=== PATIENT | female | born 1995 | race Caucasian/White ===

== ENCOUNTER 2019-04-21 12:01 | Emergency (ER) | payer BC ==
[~2019-04-21] VITALS: Ht 170.2 cm; Wt 81.6 kg
[2019-04-21 12:43] VITALS: BP 103/84
[2019-04-21 13:02] LABS: BASOPHILS % (AUTO) 0.8 % (0.0-2.0); EOSINOPHILS % (AUTO) 0.2 % (0.0-3.0); HEMOGLOBIN 17.6 G/DL (12.0-16.0); LYMPHOCYTES % (AUTO) 17.3 % (20.0-45.0); MEAN CORPUSCULAR VOLUME 96 FL (80-99); MONOCYTES % (AUTO) 6.4 % (1.0-10.0); NEUTROPHILS % (AUTO) 75.3 % (45.0-75.0); PLATELET COUNT 353 K/UL (150-450); RED BLOOD COUNT 5.44 M/UL (4.20-5.40); RED CELL DISTRIBUTION WIDTH 12.6 % (11.6-14.8); WHITE BLOOD COUNT 13.5 K/UL (4.8-10.8)
[2019-04-21 13:11] LABS: ANION GAP 25 mmol/L (5-15); BLOOD UREA NITROGEN 7 mg/dL (7-18); CARBON DIOXIDE 14 MMOL/L (21-32); CHLORIDE 99 MMOL/L (98-107); CREATININE 0.8 MG/DL (0.55-1.30); POTASSIUM 3.8 MMOL/L (3.5-5.1); SODIUM 138 MMOL/L (136-145)
[2019-04-21 13:18] LABS: ALANINE AMINOTRANSFERASE 132 U/L (12-78); ALBUMIN 4.5 G/DL (3.4-5.0); ALKALINE PHOSPHATASE 167 U/L (46-116); ASPARTATE AMINO TRANSFERASE 121 U/L (15-37); BILIRUBIN,TOTAL 0.8 MG/DL (0.2-1.0)
--- NOTE | 2019-04-21 15:00 | NUR ---
ED Nurse Note:pt. came with ETOH and tahycardia, A/Ox4 ambulatory, blood and urine sent to labs, given IV fluids
[2019-04-21 15:13] VITALS: BP 101/45
[2019-04-21 16:18] LABS: APPEARANCE,URINE CLOUDY; BILIRUBIN, URINE NEGATIVE (NEGATIVE); COLOR,URINE AMBER; GLUCOSE, URINE (UA) NEGATIVE (NEGATIVE); KETONES,URINE 4+ (NEGATIVE); LEUKOCYTE ESTERASE ,URINE NEGATIVE (NEGATIVE); NITRITE,URINE NEGATIVE (NEGATIVE); PH,URINE 5 (4.5-8.0); PROTEIN,URINE 4+ (NEGATIVE); UROBILINOGEN,URINE NORMAL MG/DL (0.0-1.0)
--- NOTE | 2019-04-21 16:43 | Emergency Room Report ---
History of Present Illness General Chief Complaint: Alcohol Intoxication Source: Patient Present Illness HPI 23-year-old female with history of alcohol abuse here due to alcohol intoxication. Reports that she drank a lot of alcohol last night and now has elevated heart rate and feels shaky. Denies any other drug use. Reports that she has been a drinker for a long time. Reports that she is interested in getting help. Is speaking in full sentences, in no apparent distress. Reports being on control. Denies chest pain, shortness of breath, palpitation, and dizziness. Denies any fever and chills no recent travel. Reports that she moved to [place] from [place] about 2 months ago. Denies . Allergies: Coded Allergies: SULFAMETHOXAZOLE (Verified Allergy, Unknown, 04/21/19) TRIMETHOPRIM (Verified Allergy, Unknown, 04/21/19) Patient History Past Medical History: see triage record Past Surgical History: unable to obtain Family History: unable to obtain Social History: ETOH Now: No Immunizations: UTD Reviewed Nursing Documentation: PMH: Agreed; PSxH: Agreed Nursing Documentation-PMH Past Medical History: No Stated History Review of Systems All Other Systems: negative except mentioned in HPI Physical Exam Vital Signs Date Time Temp Pulse Resp B/P (MAP) Pulse Ox O2 Delivery O2 Flow Rate FiO2 04/21/19 12:22 98.2 141 18 125/82 (96) 96 Room Air Sp02 EP Interpretation: reviewed, abnormal - Elevated heart rate General Appearance: alert/responsive, no apparent distress, GCS 15 Head: atraumatic Eyes: PERRL, lids + conjunctiva normal ENT: hearing intact, no angioedema Neck: supple/symm/no masses, no meningismus Respiratory: effort normal, no wheezing, chest symmetrical Cardiovascular: regular rate, rhythm, no edema Gastrointestinal: non-tender, no mass Musculoskeletal: normal inspection, gait & station normal Neurologic: oriented x3, sensory intact, normal speech Psychiatric: no suicidal/homicidal ideation, anxious Skin: no rash, well hydrated Lymphatic: normal inspection Medical Decision Making PA Attestation All my diagnosis and treatment plans were reviewed ad discussed with my supervising physician Dr. Lawrence Diagnostic Impression: Primary Impression: Acute alcoholic intoxication ER Course 23-year-old female with history of alcohol abuse here due to alcohol intoxication. Reports that she drank a lot of alcohol last night and now has elevated heart rate and feels shaky. Denies any other drug use. Reports that she has been a drinker for a long time. Reports that she is interested in getting help. Is speaking in full sentences, in no apparent distress. Reports being on control. Denies chest pain, shortness of breath, palpitation, and dizziness. Denies any fever and chills no recent travel. Reports that she moved to [place] from [place] about 2 months ago. Denies . Ddx considered but are not limited to: Alcohol intoxication with altered level of consciousness, alcohol intoxication causing pancreatitis, alcohol abuse, multi drug use and alcohol intoxication Vital signs: are WNL, pt. is afebrile H&PE are most consistent with: alcohol intoxication ORDERS: CBC, CMP, UA, tox screen, urine test, Zofran, omeprazole ER intervention: NS bolus 3 L, Zofran, Pepcid DISCHARGE: At this time pt. is stable for d/c to home. Will provide printed patient care instructions, and any necessary prescriptions. Care plan and follow up instructions have been discussed with the patient prior to discharge. I gave patient a list of detox centers sober living, avoid drinking alcohol, worsening symptoms.emergency room EKG Diagnostic Results Rate: tachycardiac Rhythm: other - tachy ST Segments: no acute changes Other Impression No acute ST changes Last Vital Signs Date Time Temp Pulse Resp B/P (MAP) Pulse Ox O2 Delivery O2 Flow Rate FiO2 04/21/19 15:13 98.2 105 18 101/45 98 Room Air Disposition: HOME, SELF-CARE Condition: Stable Referrals: NOT CHOSEN IPA/MD,REFERRING (PCP) Patient Instructions: Alcohol Intoxication, [id number] Additional Instructions: I gave patient a list of detox centers sober living, avoid drinking alcohol, worsening symptoms.emergency room Josef Polanco Apr 21, 2019 16:43
[2019-04-21] MEDS ORDERED: OMEPRAZOLE20 M3 ORAL (16:44)
[2019-04-21] MEDS ORDERED: ZOFRAN4 M1 ORAL (16:44)
[2019-04-21 17:00] VITALS: BP 101/45
--- NOTE | 2019-04-21 17:00 | NUR ---
ER DISCHARGE NOTE: Patient is cleared to be discharged per ERMD, pt is aox4, on room air, with stable vital signs. pt was given dc and prescription instructions, pt was able to verbalize understanding, pt id band and iv site removed without complications. pt is able to ambulate with steady gait. pt took all belongings.
== END 2019-04-21 17:00 | disposition home or self-care (01) ==
LOC: EMR 12:37
DX: F10.129 Alcohol abuse with intoxication, unspecified (principal); Z88.2 Allergy status to sulfonamides; Z88.1 Allergy status to other antibiotic agents
CPT/HCPCS: 36415; 80053; 80307; 81003; 81025; 84484; 85025; 93005; 96361; 96374; 96375; 99284; G0480; J2405; J7030; S0028